=== PATIENT | female | born 1985 | race Two or more races ===

== ENCOUNTER 2022-11-06 09:48 | Emergency (ER) | payer OTHER ==
[~2022-11-06] VITALS: Ht 162.6 cm; Wt 90.7 kg
== END 2022-11-06 15:44 | disposition home or self-care (01) ==
LOC: ER 09:48
PROVIDERS: Emergency Medicine
DX: O20.8 Other hemorrhage in early pregnancy (principal); Z3A.01 Less than 8 weeks gestation of pregnancy